=== PATIENT | female | born 1965 | race Caucasian/White ===

== ENCOUNTER → 2017-01-03 | Emergency (ER) | payer MEDICARE, MEDICAID ==
[~2017-01-03] VITALS: Ht 157.4 cm; Wt 58.1 kg
[~2017-01-03] MED LIST: ACULAR 3ML 3 ML5 ML OPH; ADDERALL XR15 MG PO; ADDERALL XR20 MG PO; ADDERALL XR25 MG PO; ADVAIR 250/501 EA INH; ALBUTEROL0.09 MG/A2 IH; ASPIR LOW81 MG PO; ASPIR-LOW81 MG PO; ASPIRIN ADULT L81 M1 PO; ASPIRIN CHEWABL81 MG PO; ATIVAN1 MG PO; B12100 MC1 PO; BACTRIM DS 8001 TA1 PO; CLARITIN10 MG PO; CLINDAMYCIN HC300 MG PO; DAYPRO600 M1 PO; DELTASONE10 MG PO; ELIMITE 5%60 GM T; ELIMITE5% T; FLEXERIL10 MG PO; FLEXERIL5 MG PO; FLONASE ALLERG9.9 ML NAS; HYDROCODONE BIT1 T11 PO; KEFLEX500 M1 PO; LEVAQUIN750 MG PO; LEVOFLOXACIN500 MG PO; LIDEX0.05% T; MEDROL DOSEPAK4 MG PO; METFORMIN500 MG; METFORMIN750 MG PO; Motrin,Rufen800 MG PO; NAPROSYN500 MG PO; NEURONTIN300 MG PO; NORCO 325 MG-7.1 TAB PO; OPANA ER30 MG PO; OPANA5 MG PO; PERCOCET 325 MG1 TA2 PO; PERCOCET 325 MG1 TA3 PO; PERCOCET 325 MG1 TA7 PO; PLAVIX75 M1 PO; PLAVIX75 MG PO; PREDNICOT20 MG PO; PREDNISONE10 MG PO; PREDNISONE20 MG PO; PROPRANOLOL HCL40 M1 PO; RESTORIL30 M1 PO; RESTORIL30 MG PO; ROBAXIN750 MG PO; ROBITUSSIN DM 105 ML PO; SEROQUEL100 MG PO; SEROQUEL200 MG PO; SEROQUEL25 MG PO; SPIRIVA18 MCG PO; TEMAZEPAM7.5 MG PO; TOBREX OPHTH S2.5 ML OPH; TOPAMAX50 MG PO; VICODIN 500 MG-1 TAB PO; VICODIN ES 7501 TA1 PO; ZANAFLEX CAPSULE4 MG PO; ZANAFLEX2 M2 PO; ZANAFLEX4 M1 PO; ZITHROMAX TRI-500 MG PO; ZITHROMAX500 MG PO; ZOFRAN ODT4 MG SL; [UNRECOGNIZED DRUG - OTHER] PO
== END ==
LOC: ED 13:24
DX: B34.9 Viral infection, unspecified (principal); G89.29 Other chronic pain; F32.9 Major depressive disorder, single episode, unspecified; I10 Essential (primary) hypertension; F41.0 Panic disorder [episodic paroxysmal anxiety]; G43.909 Migraine, unspecified, not intractable, without status migrainosus; F17.200 Nicotine dependence, unspecified, uncomplicated; Z91.030 Bee allergy status; Z88.0 Allergy status to penicillin; Z88.6 Allergy status to analgesic agent; Z88.8 Allergy status to other drugs, medicaments and biological substances; Z79.82 Long term (current) use of aspirin; Z79.899 Other long term (current) drug therapy

== ENCOUNTER 2017-01-18 06:52 | Inpatient (IN) | payer MEDICARE, MEDICAID ==
[2017-01-18] VITALS (8 sets, daily range): BP systolic 109–157; BP diastolic 41–87
[~2017-01-18] VITALS: Ht 157.4 cm; Wt 63.3 kg
[2017-01-18 07:24] LABS: BASO # 0.1 10*3/uL (0.0-0.1); BASO % 0.6 % (0.0-1.0); EOS # 0.2 10*3/uL (0.0-0.4); EOS % 1.9 % (1.0-4.0); HEMATOCRIT 40.2 % (37.0-47.0); HEMOGLOBIN 13.3 g/dl (12.0-16.0); LYMPH # 2.4 10*3/uL (1.3-4.4); LYMPH % 27.1 % (27.0-41.0); MEAN CELL VOLUME 101.8 fl (81.0-99.0); MEAN CORPUSCULAR HGB 33.7 pg (27.0-31.0); MEAN CORPUSCULAR HGB CONC 33.1 g/dl (33.0-37.0); MEAN PLATELET VOLUME 9.7 fl (9.6-12.3); MONO # 0.7 10*3/uL (0.1-1.0); MONO % 8.1 % (3.0-9.0); NEUT # 5.6 10*3/uL (2.3-7.9); PLATELET COUNT AUTOMATED 414 10*3/uL (130-400); RED BLOOD COUNT 3.95 10*6/uL (4.10-5.10); RED CELL DISTRI WIDTH 12.8 % (0-14.5)
[2017-01-18 07:32] LABS: INTERNATIONAL NORM RATIO 0.9 (2.0-3.5); PROTHROMBIN TIME 9.3 SECONDS (9.0-12.4)
[2017-01-18 07:39] LABS: ALBUMIN 3.4 gm/dl (3.1-4.5); ALKALINE PHOSPHATASE 96 U/L (45-117); BILIRUBIN, TOTAL 0.4 mg/dl (0.2-1.0); BUN 12 mg/dl (7-24); C-REACTIVE PROTEIN 0.84 MG/DL (0-0.3); CARBON DIOXIDE 29 mmol/L (21-32); CHLORIDE 105 mmol/L (98-107); CKMB 1.2 ng/ml (0.5-3.6); CPK 33 U/L (26-192); EST GLOM FILT AFRICAN AMERICAN > 60 ml/min; GLUCOSE 110 mg/dL (65-99); MAGNESIUM 2.3 mg/dL (1.5-2.1); POTASSIUM 4.2 mmol/L (3.5-5.1); SGOT/AST 13 IU/L (3-35); SGPT/ALT 25 U/L (12-78); SODIUM 140 mmol/L (136-145); TOTAL PROTEIN 7.2 gm/dL (6.4-8.2); TROPONIN I 0.018 ng/ml (<0.045)
[2017-01-18 09:19] LABS: BILIRUBIN NEGATIVE (NEGATIVE); BLOOD NEGATIVE (NEGATIVE); CLARITY SL CLOUDY (CLEAR); COLOR YELLOW (YELLOW); GLUCOSE NEGATIVE (NEGATIVE); KETONE NEGATIVE (NEGATIVE); LEUKO ESTERASE NEGATIVE (NEGATIVE); NITRITE NEGATIVE (NEGATIVE); PH 5.5 (5.0-9.0); PROTEIN NEGATIVE (NEGATIVE); SPECIFIC GRAVITY <= 1.005 (1.005-1.030); UROBILINOGEN 0.2 E.U./dl (0.2-1.0)
[2017-01-18 09:44] LABS: URINE REFLEX COMMENT NO (NO); WBC 0-2 wbc/hpf (0-5)
[2017-01-18 18:07] LABS: CKMB 1.1 ng/ml (0.5-3.6); CPK 36 U/L (26-192)
[2017-01-18 18:08] LABS: TROPONIN I < 0.015 ng/ml (<0.045)
[2017-01-19] VITALS: BP 109/57
[2017-01-19 00:38] LABS: CKMB 0.9 ng/ml (0.5-3.6); TROPONIN I 0.021 ng/ml (<0.045)
[2017-01-19 06:20] LABS: BASO % 0.1 % (0.0-1.0); HEMATOCRIT 38.3 % (37.0-47.0); HEMOGLOBIN 12.7 g/dl (12.0-16.0); IG # 0.1 10*3/uL (0.0-0.1); LYMPH # 1.1 10*3/uL (1.3-4.4); LYMPH % 7.3 % (27.0-41.0); MEAN CELL VOLUME 100.3 fl (81.0-99.0); MEAN CORPUSCULAR HGB 33.2 pg (27.0-31.0); MEAN CORPUSCULAR HGB CONC 33.2 g/dl (33.0-37.0); MEAN PLATELET VOLUME 10.1 fl (9.6-12.3); MONO # 0.6 10*3/uL (0.1-1.0); MONO % 4.5 % (3.0-9.0); NEUT # 12.5 10*3/uL (2.3-7.9); NEUT % 87.1 % (47.0-73.0); PLATELET COUNT AUTOMATED 392 10*3/uL (130-400); RED BLOOD COUNT 3.82 10*6/uL (4.10-5.10); RED CELL DISTRI WIDTH 12.6 % (0-14.5); WHITE BLOOD COUNT 14.3 10*3/uL (4.8-10.8)
[2017-01-19 06:27] LABS: CKMB 1.1 ng/ml (0.5-3.6); TROPONIN I 0.022 ng/ml (<0.045)
[2017-01-19 06:36] LABS: HEMOGLOBIN A1c 6.4 % (4.8-5.6)
[2017-01-19 06:53] LABS: BUN 10 mg/dl (7-24); CARBON DIOXIDE 26 mmol/L (21-32); CHLORIDE 104 mmol/L (98-107); CHOLESTEROL 212 mg/dL (<200); EST GLOM FILT AFRICAN AMERICAN > 60 ml/min; GLUCOSE 188 mg/dL (65-99); POTASSIUM 4.1 mmol/L (3.5-5.1); SODIUM 138 mmol/L (136-145); TRIGLYCERIDES 89 mg/dl (<150); VLDL CHOLESTEROL 18 mg/dL (6-40)
[2017-01-19 07:03] LABS: HDL CHOLESTEROL 73 mg/dl (40-60); LDL CHOLESTEROL 121 mg/dL (9-159); THYROID STIM HORMONE (HS) 0.098 uIU/ml (0.358-4.75)
[2017-01-19 07:12] LABS: VITAMIN D, 25-HYDROXY 26.7 ng/mL (30-100)
[2017-01-19 07:13] LABS: FOLIC ACID 8.66 ng/mL (>5.38)
[2017-01-19 08:00] VITALS: BP 102/60
[2017-01-19 12:00] VITALS: BP 112/99
[2017-01-19 16:00] VITALS: BP 99/50
[2017-01-19 20:00] VITALS: BP 110/59
[2017-01-20] VITALS: BP 104/50
[2017-01-20 08:00] VITALS: BP 118/64
[2017-01-20 12:00] VITALS: BP 122/66
== END 2017-01-20 13:28 | disposition left against medical advice (07) | DRG 303 ==
LOC: ED 06:52 → EDHOLD 12:22 → 4E 12:22
PROVIDERS: Emergency Medicine; Internal Medicine
DX: I25.10 Atherosclerotic heart disease of native coronary artery without angina pectoris (principal); R13.10 Dysphagia, unspecified; I10 Essential (primary) hypertension; I71.4 Abdominal aortic aneurysm, without rupture; G43.109 Migraine with aura, not intractable, without status migrainosus; I73.9 Peripheral vascular disease, unspecified; R94.31 Abnormal electrocardiogram [ECG] [EKG]; F41.9 Anxiety disorder, unspecified; F32.9 Major depressive disorder, single episode, unspecified; M54.12 Radiculopathy, cervical region; F41.0 Panic disorder [episodic paroxysmal anxiety]; G89.29 Other chronic pain; M54.16 Radiculopathy, lumbar region; Z53.21 Procedure and treatment not carried out due to patient leaving prior to being seen by health care provider; Z98.42 Cataract extraction status, left eye; Z98.51 Tubal ligation status; Z90.12 Acquired absence of left breast and nipple; Z83.3 Family history of diabetes mellitus; Z82.49 Family history of ischemic heart disease and other diseases of the circulatory system; Z82.0 Family history of epilepsy and other diseases of the nervous system; Z88.0 Allergy status to penicillin; Z88.1 Allergy status to other antibiotic agents; Z91.048 Other nonmedicinal substance allergy status; Z88.7 Allergy status to serum and vaccine; Z88.5 Allergy status to narcotic agent; Z88.8 Allergy status to other drugs, medicaments and biological substances; Z79.82 Long term (current) use of aspirin; Z79.899 Other long term (current) drug therapy

== ENCOUNTER 2017-05-28 10:07 | Emergency (ER) | payer MEDICARE, MEDICAID ==
[~2017-05-28] VITALS: Ht 157.4 cm; Wt 58.1 kg
[2017-05-28] MEDS ORDERED: Motrin,Rufen800 MG PO (12:14)
== END 2017-05-28 13:37 | disposition home or self-care (01) ==
LOC: ED 10:07
DX: S60.031A Contusion of right middle finger without damage to nail, initial encounter (principal); F17.210 Nicotine dependence, cigarettes, uncomplicated; Z91.030 Bee allergy status; Z88.7 Allergy status to serum and vaccine; Z88.0 Allergy status to penicillin; Z88.6 Allergy status to analgesic agent; Z88.8 Allergy status to other drugs, medicaments and biological substances; Z79.899 Other long term (current) drug therapy; Z79.82 Long term (current) use of aspirin; W18.39XA Other fall on same level, initial encounter; Y93.9 Activity, unspecified; Y92.9 Unspecified place or not applicable; Y99.9 Unspecified external cause status

== ENCOUNTER 2017-06-09 09:19 | Inpatient (IN) | payer MEDICARE, MEDICAID ==
[~2017-06-09] VITALS: Ht 157.5 cm; Wt 61.2 kg
--- NOTE | ~2017-06-09 | CON ---
[place], [place] REPORT OF CONSULTATION NAME: JUSTA POSADA UNIT #: [id number] ROOM: 526 DOCTOR: LEISA SEE MD BIRTHDATE: [birth year] DOS: 06/10/2017 REASON FOR CONSULTATION: Elevated troponin. HISTORY OF PRESENT ILLNESS: Justa Posada is a 52-year-old woman who has a long history of tobacco abuse. This has resulted in dyspnea and chest discomfort in the past. She most recently presented to the hospital in January 2017 when she presented with a syncopal episode. She was found to have marked symmetric anterior T-wave inversions. A stress test was requested, but the patient refused, stating that the stress tests make her too upset. She did agree to a catheterization. This was performed on 01/22/2017 and showed a 30% stenosis of the mid circumflex. She had no other significant coronary lesions and her ejection fraction was . Her electrocardiogram was felt to be a false positive tracing. She presents now with an acute exacerbation of her dyspnea. She states that she is very sensitive to pine pollen and recently has been living with her daughter who lives in a house surrounded by pine trees. She believed that this is what set her off. She does admit, however, that she continues to smoke 1 pack of cigarettes a day and tells me that she is unlikely to decrease this. On admission, she was very short of breath and her oxygenation on room air showed a pulse oximetry in the 80s. She was also actively wheezing on admission, she was placed on oxygen and given bronchodilators and steroids with immediate improvement. Her chest x-ray showed no acute disease. A D-dimer was elevated, but a CT angiogram of the chest showed no evidence for pulmonary emboli. Since she has been hospitalized, serial troponin levels have been minimally abnormal. On admission, they were normal; however during the hospitalization, her troponin levels were 0.056, 0.082 and 0.084. We were asked to assist in the assessment of this finding. PAST MEDICAL HISTORY: Includes; 1. Long-term and ongoing tobacco abuse. 2. Anxiety, depression and panic attacks. 3. Migraine headaches. 4. Peripheral vascular disease status post percutaneous revascularization of the left lower extremity. Details not available. 5. History of small infrarenal abdominal aortic aneurysm measuring less than 3 cm in diameter. 6. History of cervical radiculopathy. 7. Chronic back pain. 8. Abnormal electrocardiogram, prompting catheterization, 01/22/2017. Patient had 30% mid circumflex stenosis, but coronary anatomy was otherwise normal. Ejection fraction was 60%. 9. Essential hypertension. 10. History of right breast biopsy and partial mastectomy of the left breast. FAMILY HISTORY: The patient's father at age 76 with a history of diabetes, [place], [place] REPORT OF CONSULTATION NAME: JUSTA POSADA UNIT #: [id number] ROOM: 526 DOCTOR: LEISA SEE MD BIRTHDATE: [birth year] hypertension and [place]. The patient's mother at age 66 from diabetes and hypertension. MEDICATIONS PRIOR TO ADMISSION: Aspirin 81 mg per day, clopidogrel 75 mg per day, gabapentin 300 mg t.i.d., propranolol 40 mg b.i.d., Seroquel 200 mg at bedtime, temazepam 30 mg at bedtime and tizanidine 2 mg b.i.d. p.r.n. muscle spasms. ALLERGIES: SHE LISTS ALLERGIES TO BEE STINGS, INFLUENZA VIRUS VACCINE, PENICILLINS, CODEINE, NEFAZODONE, PNEUMOCOCCAL VACCINE, TETRACYCLINE, TOPIRAMATE AND ZOLPIDEM. REVIEW OF SYSTEMS: The patient denies diplopia or loss of vision. She denies syncope, lightheadedness or focal weakness. She denies nausea or vomiting. She denies fevers or chills. She has had worsening dyspnea. She denies hemoptysis or hematemesis. She denies change in bowel or bladder habits. She denies blood in her stools or urine. She denies any recent weight change. She denies any peripheral edema. She denies any hot or swollen joints. She denies any skin rashes. The remainder of the review of systems is negative except as noted above. SOCIAL HISTORY: The patient is living with her daughter. She does smoke a pack of cigarettes a day, but does not consume alcohol or illegal drugs. PHYSICAL EXAMINATION: GENERAL: The patient is a well-nourished white female who is awake, alert and oriented. VITAL SIGNS: Pulse is 96 and regular, blood pressure is 118/65. She is afebrile. She weighs 61.2 kg and has a body mass index of 24.7. HEENT: Normocephalic, atraumatic. Extraocular muscles are intact. Sclerae are clear. Pupils are equal, round and reactive to light. The oral mucosa is moist. Tongue is midline. NECK: Supple. She has no jugular distention. Carotids are full without bruits. She has no neck or supraclavicular masses. No thyromegaly. LUNGS: Respirations are unlabored. Her chest has mild expiratory prolongation posteriorly and a few scattered wheezes anteriorly. I heard no rales. She had no presacral edema or chest wall tenderness. CARDIOVASCULAR: Her heart had a regular rhythm with a soft S4 gallop and no S3 or murmur. PMI is not displaced. There is no precordial heave, lift or thrill. ABDOMEN: Soft and normally active without masses, organomegaly or bruits. EXTREMITIES: Showed no edema. Peripheral pulses are full and equal bilaterally. LABORATORY DATA: I reviewed her electrocardiogram. It showed sinus rhythm with PACs. No acute ST or T-wave changes were seen on the current EKG. IMPRESSIONS: 1. Presentation with acute respiratory failure and hypoxemia, probably due to acute bronchospasm, pneumonitis, etc. 2. Mild elevation in troponin, probably due to a type 2 myocardial injury [place], [place] REPORT OF CONSULTATION NAME: JUSTA POSADA UNIT #: [id number] ROOM: 526 DOCTOR: LEISA SEE MD BIRTHDATE: [birth year] (demand ischemia). 3. Long-term and ongoing cigarette abuse. 4. History of peripheral vascular disease. 5. Status post recent cardiac catheterization. The patient did not have any significant coronary artery disease demonstrated. 6. Small infrarenal abdominal aortic aneurysm, which will require long-term observation. PLAN: No other cardiac workup is indicated at this time. We will remain available to see her if needed; however, I think that management of her pulmonary status will result in improvement in her cardiac status as well. She should emphasize risk factor modification and I did speak to her about smoking cessation, but she is not particularly interested in that at this time. I thank the hospitalist physicians for asking our advice regarding her care. LEISA SEE MD CM:CONSTR:REPORT OF CONSULTATION [id number] 06/10/17 [id number] interface
[2017-06-09 09:37] VITALS: BP 168/100
[2017-06-09 09:40] LABS: BASO # 0.1 10*3/uL (0.0-0.1); BASO % 0.7 % (0.0-1.0); EOS # 0.3 10*3/uL (0.0-0.4); EOS % 3.2 % (1.0-4.0); HEMATOCRIT 40.3 % (37.0-47.0); HEMOGLOBIN 13.3 g/dl (12.0-16.0); LYMPH # 2.2 10*3/uL (1.3-4.4); LYMPH % 27.7 % (27.0-41.0); MEAN CELL VOLUME 100.5 fl (81.0-99.0); MEAN CORPUSCULAR HGB 33.2 pg (27.0-31.0); MEAN PLATELET VOLUME 10.6 fl (9.6-12.3); MONO # 0.5 10*3/uL (0.1-1.0); MONO % 5.6 % (3.0-9.0); NEUT % 62.6 % (47.0-73.0); PLATELET COUNT AUTOMATED 354 10*3/uL (130-400); RED BLOOD COUNT 4.01 10*6/uL (4.10-5.10); RED CELL DISTRI WIDTH 13.2 % (0-14.5)
[2017-06-09 09:56] LABS: ALBUMIN 3.5 gm/dl (3.1-4.5); ALKALINE PHOSPHATASE 93 U/L (45-117); BUN 10 mg/dl (7-24); CHLORIDE 104 mmol/L (98-107); CREATININE 0.81 mg/dL (0.55-1.02); MAGNESIUM 2.1 mg/dL (1.5-2.1); POTASSIUM 4.1 mmol/L (3.5-5.1); SGOT/AST 11 IU/L (3-35); SGPT/ALT 16 U/L (12-78); SODIUM 141 mmol/L (136-145); TOTAL PROTEIN 7.3 gm/dL (6.4-8.2)
[2017-06-09 09:58] LABS: TROPONIN I < 0.015 ng/ml (<0.045)
[2017-06-09 10:48] VITALS: BP 152/87
[2017-06-09 16:26] LABS: ACT PARTIAL THROMBO TIME 23.2 SECONDS (20.8-31.5); INTERNATIONAL NORM RATIO 0.9 (2.0-3.5)
[2017-06-09 16:37] VITALS: BP 164/85
[2017-06-09] MEDS ORDERED: TIZANIDINE2 MG PO (18:37)
[2017-06-09 20:00] VITALS: BP 147/88
[2017-06-10] VITALS: BP 118/65
[2017-06-10 06:00] LABS: HEMATOCRIT 36.6 % (37.0-47.0); HEMOGLOBIN 12.2 g/dl (12.0-16.0); MEAN CELL VOLUME 98.9 fl (81.0-99.0); MEAN CORPUSCULAR HGB CONC 33.3 g/dl (33.0-37.0); MEAN PLATELET VOLUME 10.9 fl (9.6-12.3); PLATELET COUNT AUTOMATED 357 10*3/uL (130-400); RED CELL DISTRI WIDTH 13.2 % (0-14.5); WHITE BLOOD COUNT 18.6 10*3/uL (4.8-10.8)
[2017-06-10 06:22] LABS: ALBUMIN 3.1 gm/dl (3.1-4.5); ALKALINE PHOSPHATASE 82 U/L (45-117); BUN 10 mg/dl (7-24); CHLORIDE 106 mmol/L (98-107); CHOLESTEROL 187 mg/dL (<200); CREATININE 0.74 mg/dL (0.55-1.02); HDL CHOLESTEROL 78 mg/dl (40-60); LDL CHOLESTEROL 90 mg/dL (9-159); MAGNESIUM 1.9 mg/dL (1.5-2.1); PHOSPHOROUS 3.8 mg/dL (2.5-4.9); PLATELET SUFFICIENCY NORMAL (NORMAL); POTASSIUM 3.9 mmol/L (3.5-5.1); SGOT/AST 14 IU/L (3-35); SGPT/ALT 14 U/L (12-78); SODIUM 139 mmol/L (136-145); TOTAL CELLS COUNTED 100 #CELLS; TOTAL PROTEIN 6.5 gm/dL (6.4-8.2); TRIGLYCERIDES 96 mg/dl (<150); VLDL CHOLESTEROL 19 mg/dL (6-40)
[2017-06-10 06:26] LABS: THYROID STIM HORMONE (HS) 0.091 uIU/ml (0.358-4.75)
[2017-06-10 08:00] VITALS: BP 132/84
[2017-06-10 08:02] LABS: VITAMIN D, 25-HYDROXY 36.2 ng/mL (30-100)
[2017-06-10 12:00] VITALS: BP 120/76
[2017-06-10 16:00] VITALS: BP 119/72
[2017-06-10 20:00] VITALS: BP 129/60
[2017-06-11] VITALS: BP 130/67
[2017-06-11 06:05] LABS: BASO % 0.1 % (0.0-1.0); HEMOGLOBIN 11.4 g/dl (12.0-16.0); LYMPH # 1.2 10*3/uL (1.3-4.4); LYMPH % 6.5 % (27.0-41.0); MEAN CELL VOLUME 100.9 fl (81.0-99.0); MEAN CORPUSCULAR HGB 33.8 pg (27.0-31.0); MEAN CORPUSCULAR HGB CONC 33.5 g/dl (33.0-37.0); MEAN PLATELET VOLUME 10.8 fl (9.6-12.3); MONO # 0.5 10*3/uL (0.1-1.0); MONO % 2.6 % (3.0-9.0); NEUT % 89.8 % (47.0-73.0); PLATELET COUNT AUTOMATED 361 10*3/uL (130-400); RED BLOOD COUNT 3.37 10*6/uL (4.10-5.10); RED CELL DISTRI WIDTH 13.7 % (0-14.5); WHITE BLOOD COUNT 18.9 10*3/uL (4.8-10.8)
[2017-06-11 06:36] LABS: BUN 16 mg/dl (7-24); CHLORIDE 107 mmol/L (98-107); CREATININE 0.88 mg/dL (0.55-1.02); POTASSIUM 3.6 mmol/L (3.5-5.1); SODIUM 139 mmol/L (136-145); THYROXINE (T4) TOTAL 6.5 ug/dl (4.8-13.9)
[2017-06-11 06:43] LABS: THYROID STIM HORMONE (HS) 0.044 uIU/ml (0.358-4.75)
[2017-06-11 08:00] VITALS: BP 150/74
[2017-06-11] MEDS ORDERED: B12,B-12,B 12500 MC1 PO (09:18)
[2017-06-11] MEDS ORDERED: LEVAQUIN500 M2 PO (09:18)
[2017-06-11] MEDS ORDERED: PREDNISONE10 MG PO (09:18)
== END 2017-06-11 09:49 | disposition home or self-care (01) | DRG 193 ==
LOC: ED 09:19 → 5E 10:31 → EDHOLD 10:31 → 5E 10:49
PROVIDERS: Family Medicine; Internal Medicine Cardiovascular Disease; Nurse Practitioner Family; ADMIT Internal Medicine
DX: J18.9 Pneumonia, unspecified organism (principal); J96.01 Acute respiratory failure with hypoxia; J44.1 Chronic obstructive pulmonary disease with (acute) exacerbation; J44.0 Chronic obstructive pulmonary disease with (acute) lower respiratory infection; F17.210 Nicotine dependence, cigarettes, uncomplicated; F41.9 Anxiety disorder, unspecified; M54.12 Radiculopathy, cervical region; G89.29 Other chronic pain; M54.16 Radiculopathy, lumbar region; F32.9 Major depressive disorder, single episode, unspecified; I73.9 Peripheral vascular disease, unspecified; J98.01 Acute bronchospasm; M54.9 Dorsalgia, unspecified; W18.30XA Fall on same level, unspecified, initial encounter; G43.909 Migraine, unspecified, not intractable, without status migrainosus; I25.10 Atherosclerotic heart disease of native coronary artery without angina pectoris; S60.00XA Contusion of unspecified finger without damage to nail, initial encounter; I71.4 Abdominal aortic aneurysm, without rupture; Y93.89 Activity, other specified; Y92.89 Other specified places as the place of occurrence of the external cause; Y99.8 Other external cause status; Z88.5 Allergy status to narcotic agent; Z83.3 Family history of diabetes mellitus; Z82.49 Family history of ischemic heart disease and other diseases of the circulatory system; Z82.0 Family history of epilepsy and other diseases of the nervous system; Z88.0 Allergy status to penicillin; Z88.1 Allergy status to other antibiotic agents; Z91.030 Bee allergy status; Z98.42 Cataract extraction status, left eye; Z90.12 Acquired absence of left breast and nipple; Z98.51 Tubal ligation status; Z88.7 Allergy status to serum and vaccine

== ENCOUNTER → 2018-01-18 | Outpatient (CLI) | payer MEDICARE ==
[~2018-01-18] MED LIST changes: +B12,B-12,B 12500 MC1 PO; +LEVAQUIN500 M2 PO; +TIZANIDINE2 MG PO
[2018-01-18 10:41] LABS: CREATININE 0.77 mg/dL (0.55-1.02)
== END | disposition home or self-care (01) ==
LOC: CT 12-18 16:00 → LAB 10:12 → CT 11:00
PROVIDERS: Registered Nurse Flight
DX: I71.4 Abdominal aortic aneurysm, without rupture (principal); K76.0 Fatty (change of) liver, not elsewhere classified; Z79.899 Other long term (current) drug therapy

== ENCOUNTER 2018-04-03 18:26 | Emergency (ER) | payer MEDICARE, MEDICAID ==
[~2018-04-03] VITALS: Ht 157.4 cm; Wt 54.4 kg
[2018-04-03] MEDS ORDERED: ATIVAN0.5 MG PO (18:32)
[2018-04-03] MEDS ORDERED: VISTARIL25 MG PO (18:47)
== END 2018-04-03 19:19 | disposition home or self-care (01) ==
LOC: ED 18:26
DX: F41.9 Anxiety disorder, unspecified (principal); F17.210 Nicotine dependence, cigarettes, uncomplicated; Z79.82 Long term (current) use of aspirin; Z79.899 Other long term (current) drug therapy; Z91.030 Bee allergy status; Z88.0 Allergy status to penicillin; Z88.6 Allergy status to analgesic agent; Z88.8 Allergy status to other drugs, medicaments and biological substances; Z88.1 Allergy status to other antibiotic agents; Z88.7 Allergy status to serum and vaccine

== ENCOUNTER 2018-05-05 13:50 | Emergency (ER) | payer MEDICARE, MEDICAID ==
[~2018-05-05] VITALS: Ht 157.4 cm; Wt 56.2 kg
[~2018-05-05 13:50] MED LIST changes: +ATIVAN0.5 MG PO; +VISTARIL25 MG PO
[2018-05-05] MEDS ORDERED: NEURONTIN300 MG PO (13:56)
== END 2018-05-05 14:05 | disposition home or self-care (01) ==
LOC: ED 13:50
DX: F41.9 Anxiety disorder, unspecified (principal); R03.0 Elevated blood-pressure reading, without diagnosis of hypertension; F17.210 Nicotine dependence, cigarettes, uncomplicated; Z76.0 Encounter for issue of repeat prescription; Z91.030 Bee allergy status; Z88.0 Allergy status to penicillin; Z88.6 Allergy status to analgesic agent; Z88.8 Allergy status to other drugs, medicaments and biological substances; Z88.1 Allergy status to other antibiotic agents; Z88.7 Allergy status to serum and vaccine; Z79.899 Other long term (current) drug therapy; Z79.82 Long term (current) use of aspirin

== ENCOUNTER 2018-06-24 09:55 | Emergency (ER) | payer MEDICARE, MEDICAID ==
[~2018-06-24] VITALS: Ht 157.4 cm; Wt 54.4 kg
[2018-06-24 10:43] LABS: BASO # 0.1 10*3/uL (0.0-0.1); BASO % 0.7 % (0.0-1.0); EOS # 0.1 10*3/uL (0.0-0.4); EOS % 1.5 % (1.0-4.0); HEMATOCRIT 40.8 % (37.0-47.0); HEMOGLOBIN 13.3 g/dl (12.0-16.0); LYMPH # 1.9 10*3/uL (1.3-4.4); LYMPH % 26.4 % (27.0-41.0); MEAN CELL VOLUME 100.7 fl (81.0-99.0); MEAN CORPUSCULAR HGB 32.8 pg (27.0-31.0); MEAN CORPUSCULAR HGB CONC 32.6 g/dl (33.0-37.0); MEAN PLATELET VOLUME 10.6 fl (9.6-12.3); MONO # 0.4 10*3/uL (0.1-1.0); MONO % 5.5 % (3.0-9.0); NEUT # 4.8 10*3/uL (2.3-7.9); NEUT % 65.8 % (47.0-73.0); PLATELET COUNT AUTOMATED 359 10*3/uL (130-400); RED BLOOD COUNT 4.05 10*6/uL (4.10-5.10); RED CELL DISTRI WIDTH 13.2 % (0-14.5); WHITE BLOOD COUNT 7.3 10*3/uL (4.8-10.8)
[2018-06-24 11:00] LABS: ALBUMIN 3.9 gm/dl (3.1-4.5); ALKALINE PHOSPHATASE 87 U/L (45-117); BUN 11 mg/dl (7-24); CHLORIDE 103 mmol/L (98-107); CREATININE 0.74 mg/dL (0.55-1.02); POTASSIUM 4.1 mmol/L (3.5-5.1); SGOT/AST 14 IU/L (3-35); SGPT/ALT 22 U/L (12-78); SODIUM 137 mmol/L (136-145); TOTAL PROTEIN 7.4 gm/dL (6.4-8.2)
[2018-06-24] MEDS ORDERED: PREDNISONE50 MG PO (12:29)
[2018-06-24] MEDS ORDERED: CYCLOBENZAPRINE10 MG PO (12:29)
== END 2018-06-24 12:32 | disposition home or self-care (01) ==
LOC: ED 09:55
PROVIDERS: Nurse Practitioner Family
DX: G43.909 Migraine, unspecified, not intractable, without status migrainosus (principal); M43.6 Torticollis; Z88.0 Allergy status to penicillin; Z88.5 Allergy status to narcotic agent; Z88.6 Allergy status to analgesic agent; Z91.030 Bee allergy status; Z88.8 Allergy status to other drugs, medicaments and biological substances; Z79.899 Other long term (current) drug therapy; Z79.82 Long term (current) use of aspirin; Z98.51 Tubal ligation status

== ENCOUNTER 2018-09-29 10:37 | Emergency (ER) | payer MEDICARE, MEDICAID ==
[~2018-09-29] VITALS: Ht 157.4 cm; Wt 53.1 kg
[~2018-09-29 10:37] MED LIST changes: +CYCLOBENZAPRINE10 MG PO; +PREDNISONE50 MG PO
[2018-09-29 11:18] LABS: BASO # 0.1 10*3/uL (0.0-0.1); BASO % 0.7 % (0.0-1.0); EOS # 0.3 10*3/uL (0.0-0.4); HEMATOCRIT 41.4 % (37.0-47.0); HEMOGLOBIN 13.8 g/dl (12.0-16.0); LYMPH # 2.4 10*3/uL (1.3-4.4); LYMPH % 26.9 % (27.0-41.0); MEAN CELL VOLUME 102.2 fl (81.0-99.0); MEAN CORPUSCULAR HGB 34.1 pg (27.0-31.0); MEAN CORPUSCULAR HGB CONC 33.3 g/dl (33.0-37.0); MEAN PLATELET VOLUME 10.2 fl (9.6-12.3); MONO # 0.7 10*3/uL (0.1-1.0); MONO % 7.5 % (3.0-9.0); NEUT # 5.4 10*3/uL (2.3-7.9); NEUT % 61.7 % (47.0-73.0); PLATELET COUNT AUTOMATED 367 10*3/uL (130-400); RED BLOOD COUNT 4.05 10*6/uL (4.10-5.10); RED CELL DISTRI WIDTH 13.4 % (0-14.5); WHITE BLOOD COUNT 8.8 10*3/uL (4.8-10.8)
[2018-09-29 11:29] LABS: ACT PARTIAL THROMBO TIME 22.7 SECONDS (20.8-31.5); INTERNATIONAL NORM RATIO 0.9 (2.0-3.5)
[2018-09-29 11:38] LABS: ALBUMIN 3.8 gm/dl (3.1-4.5); ALKALINE PHOSPHATASE 108 U/L (45-117); BUN 16 mg/dl (7-24); CHLORIDE 101 mmol/L (98-107); CREATININE 0.78 mg/dL (0.55-1.02); POTASSIUM 4.4 mmol/L (3.5-5.1); SGOT/AST 30 IU/L (3-35); SGPT/ALT 36 U/L (12-78); SODIUM 135 mmol/L (136-145); TOTAL PROTEIN 7.5 gm/dL (6.4-8.2)
== END 2018-09-29 13:21 | disposition left against medical advice (07) ==
LOC: ED 10:37
PROVIDERS: Emergency Medicine
DX: I77.89 Other specified disorders of arteries and arterioles (principal); I10 Essential (primary) hypertension; J44.9 Chronic obstructive pulmonary disease, unspecified; I25.10 Atherosclerotic heart disease of native coronary artery without angina pectoris; G43.909 Migraine, unspecified, not intractable, without status migrainosus; F17.210 Nicotine dependence, cigarettes, uncomplicated; Z91.030 Bee allergy status; Z88.0 Allergy status to penicillin; Z88.7 Allergy status to serum and vaccine; Z88.6 Allergy status to analgesic agent; Z88.8 Allergy status to other drugs, medicaments and biological substances; Z88.1 Allergy status to other antibiotic agents; Z79.899 Other long term (current) drug therapy; Z79.82 Long term (current) use of aspirin

== ENCOUNTER → 2018-12-05 | Outpatient (CLI) | payer MEDICARE, MEDICAID | END | disposition home or self-care (01) | LOC: MRI 11-27 15:00 | DX: R41.3 Other amnesia (principal) ==

== ENCOUNTER 2019-03-24 17:31 | Emergency (ER) | payer MEDICARE, MEDICAID ==
[~2019-03-24] VITALS: Ht 157.4 cm; Wt 55.8 kg
[2019-03-24] MEDS ORDERED: CLINDAMYCIN HC300 MG PO (17:38)
== END 2019-03-24 19:00 | disposition home or self-care (01) ==
LOC: ED 17:31
DX: S61.512A Laceration without foreign body of left wrist, initial encounter (principal); S70.311A Abrasion, right thigh, initial encounter; F17.210 Nicotine dependence, cigarettes, uncomplicated; Z91.030 Bee allergy status; Z88.7 Allergy status to serum and vaccine; Z88.0 Allergy status to penicillin; Z88.5 Allergy status to narcotic agent; Z88.8 Allergy status to other drugs, medicaments and biological substances; Z88.1 Allergy status to other antibiotic agents; Z79.899 Other long term (current) drug therapy; Z79.82 Long term (current) use of aspirin; W26.8XXA Contact with other sharp object(s), not elsewhere classified, initial encounter; Y93.89 Activity, other specified; Y92.89 Other specified places as the place of occurrence of the external cause; Y99.8 Other external cause status

== ENCOUNTER 2019-06-30 07:22 | Emergency (ER) | payer MEDICARE, MEDICAID ==
[~2019-06-30] VITALS: Ht 157.4 cm; Wt 51.7 kg
[2019-06-30] MEDS ORDERED: PREDNISONE20 M1 PO (10:55)
[2019-06-30] MEDS ORDERED: LIDEX 0.05% CRE15 GM T (10:55)
== END 2019-06-30 11:14 | disposition home or self-care (01) ==
LOC: ED 07:22
DX: G43.909 Migraine, unspecified, not intractable, without status migrainosus (principal); L25.9 Unspecified contact dermatitis, unspecified cause; G89.29 Other chronic pain; I25.10 Atherosclerotic heart disease of native coronary artery without angina pectoris; Z98.890 Other specified postprocedural states; Z98.51 Tubal ligation status; Z79.899 Other long term (current) drug therapy; Z79.82 Long term (current) use of aspirin; Z91.030 Bee allergy status; Z88.7 Allergy status to serum and vaccine; Z88.0 Allergy status to penicillin; Z88.5 Allergy status to narcotic agent; Z88.1 Allergy status to other antibiotic agents

== ENCOUNTER 2019-07-27 09:55 | Emergency (ER) | payer MEDICARE, MEDICAID ==
[~2019-07-27] VITALS: Ht 157.4 cm; Wt 51.7 kg
[~2019-07-27 09:55] MED LIST changes: +LIDEX 0.05% CRE15 GM T; +PREDNISONE20 M1 PO
[2019-07-27 10:56] LABS: BASO % 0.4 % (0.0-1.0); EOS # 0.2 10*3/uL (0.0-0.4); EOS % 2.2 % (1.0-4.0); HEMATOCRIT 39.3 % (37.0-47.0); HEMOGLOBIN 12.8 g/dl (12.0-16.0); LYMPH # 2.9 10*3/uL (1.3-4.4); LYMPH % 28.3 % (27.0-41.0); MEAN CELL VOLUME 105.1 fl (81.0-99.0); MEAN CORPUSCULAR HGB 34.2 pg (27.0-31.0); MEAN CORPUSCULAR HGB CONC 32.6 g/dl (33.0-37.0); MEAN PLATELET VOLUME 11.2 fl (9.6-12.3); MONO # 0.7 10*3/uL (0.1-1.0); MONO % 6.6 % (3.0-9.0); NEUT # 6.4 10*3/uL (2.3-7.9); NEUT % 62.2 % (47.0-73.0); PLATELET COUNT AUTOMATED 326 10*3/uL (130-400); RED BLOOD COUNT 3.74 10*6/uL (4.10-5.10); RED CELL DISTRI WIDTH 14.1 % (0-14.5); WHITE BLOOD COUNT 10.2 10*3/uL (4.8-10.8)
[2019-07-27 11:08] LABS: ACT PARTIAL THROMBO TIME 22.7 SECONDS (20.0-32.1); INTERNATIONAL NORM RATIO 0.9 (2.0-3.5)
[2019-07-27 11:13] LABS: ALBUMIN 3.3 gm/dl (3.1-4.5); ALKALINE PHOSPHATASE 68 U/L (45-117); BUN 11 mg/dl (7-24); CHLORIDE 103 mmol/L (98-107); CREATININE 0.81 mg/dL (0.55-1.02); LIPASE 141 U/L (73-393); SGOT/AST 11 IU/L (3-35); SGPT/ALT 20 U/L (12-78); SODIUM 138 mmol/L (136-145); TOTAL PROTEIN 6.1 gm/dL (6.4-8.2)
[2019-07-27 11:15] LABS: TROPONIN I < 0.015 ng/ml (<0.045)
[2019-07-27 12:37] LABS: BILIRUBIN NEGATIVE (NEGATIVE); BLOOD NEGATIVE (NEGATIVE); CLARITY CLEAR (CLEAR); COLOR YELLOW (YELLOW); GLUCOSE NEGATIVE (NEGATIVE); KETONE NEGATIVE (NEGATIVE); LEUKO ESTERASE TRACE (NEGATIVE); NITRITE NEGATIVE (NEGATIVE); PH 6.5 (5.0-9.0); SPECIFIC GRAVITY <= 1.005 (1.005-1.030); UROBILINOGEN 0.2 E.U./dl (0.2-1.0)
[2019-07-27 12:48] LABS: BACTERIA TRACE
[2019-07-27] MEDS ORDERED: ROBAXIN-750750 MG PO (13:36)
== END 2019-07-27 13:49 | disposition home or self-care (01) ==
LOC: ED 09:55
PROVIDERS: Physician Assistant
DX: S52.121A Displaced fracture of head of right radius, initial encounter for closed fracture (principal); S90.31XA Contusion of right foot, initial encounter; R51 Headache; M54.2 Cervicalgia; M25.521 Pain in right elbow; I10 Essential (primary) hypertension; Z79.01 Long term (current) use of anticoagulants; W01.198A Fall on same level from slipping, tripping and stumbling with subsequent striking against other object, initial encounter; W20.8XXA Other cause of strike by thrown, projected or falling object, initial encounter; Y93.89 Activity, other specified; Y92.89 Other specified places as the place of occurrence of the external cause; Y99.8 Other external cause status

== ENCOUNTER → 2019-08-03 | Outpatient (CLI) | payer MEDICARE, MEDICAID ==
[~2019-08-03] MED LIST changes: +ROBAXIN-750750 MG PO
== END | disposition home or self-care (01) ==
LOC: ORTHO 00:22
DX: M25.422 Effusion, left elbow (principal)

== ENCOUNTER 2019-10-05 10:34 | Emergency (ER) | payer MEDICARE, MEDICAID ==
[~2019-10-05] VITALS: Ht 157.4 cm; Wt 54.4 kg
== END 2019-10-05 12:35 | disposition home or self-care (01) ==
LOC: ED 10:34
DX: S63.501A Unspecified sprain of right wrist, initial encounter (principal); S40.011A Contusion of right shoulder, initial encounter; M79.642 Pain in left hand; M25.521 Pain in right elbow; J45.909 Unspecified asthma, uncomplicated; G89.29 Other chronic pain; G43.909 Migraine, unspecified, not intractable, without status migrainosus; F17.210 Nicotine dependence, cigarettes, uncomplicated; Z91.030 Bee allergy status; Z88.7 Allergy status to serum and vaccine; Z88.0 Allergy status to penicillin; Z88.5 Allergy status to narcotic agent; Z88.8 Allergy status to other drugs, medicaments and biological substances; Z79.2 Long term (current) use of antibiotics; Z79.82 Long term (current) use of aspirin; Z79.899 Other long term (current) drug therapy; Z86.718 Personal history of other venous thrombosis and embolism; W20.8XXA Other cause of strike by thrown, projected or falling object, initial encounter; Y93.89 Activity, other specified; Y92.89 Other specified places as the place of occurrence of the external cause; Y99.8 Other external cause status

== ENCOUNTER → 2019-12-02 | Outpatient (CLI) | payer MEDICARE, MEDICAID | END | disposition home or self-care (01) | LOC: US 10:30 | DX: I73.9 Peripheral vascular disease, unspecified (principal); Z95.828 Presence of other vascular implants and grafts ==

== ENCOUNTER → 2020-09-28 | Outpatient (CLI) | payer OTHER, MEDICAID | END | disposition home or self-care (01) | LOC: MAMMO 09-19 13:30 | PROVIDERS: ATTEND Internal Medicine | DX: Z12.31 Encounter for screening mammogram for malignant neoplasm of breast (principal) ==

== ENCOUNTER → 2020-11-16 | Outpatient (CLI) | payer OTHER, MEDICAID | END | disposition home or self-care (01) | LOC: ORTHO 00:33 | PROVIDERS: ATTEND Orthopaedic Surgery | DX: M25.511 Pain in right shoulder (principal) ==

== ENCOUNTER 2021-04-26 11:12 | Emergency (ER) | payer OTHER, MEDICAID ==
[~2021-04-26] VITALS: Wt 56.7 kg
[2021-04-26] MEDS ORDERED: SILVADENE,SSD C50 GM T (12:01)
[2021-04-26] MEDS ORDERED: HYDROCODONE-AC1 EAC1 PO (12:01)
[2021-04-26] MEDS ORDERED: SEPTDS PO (12:01)
== END 2021-04-26 12:31 | disposition home or self-care (01) ==
LOC: ED 11:12
DX: T22.211A Burn of second degree of right forearm, initial encounter (principal); T22.611A Corrosion of second degree of right forearm, initial encounter; F17.210 Nicotine dependence, cigarettes, uncomplicated; Z79.899 Other long term (current) drug therapy; Z79.82 Long term (current) use of aspirin; Z91.030 Bee allergy status; Z88.7 Allergy status to serum and vaccine; Z88.5 Allergy status to narcotic agent; Z88.8 Allergy status to other drugs, medicaments and biological substances; X58.XXXA Exposure to other specified factors, initial encounter; Y93.89 Activity, other specified; Y92.89 Other specified places as the place of occurrence of the external cause; Y99.9 Unspecified external cause status

== ENCOUNTER 2021-06-30 08:35 | Emergency (ER) | payer OTHER, MEDICAID ==
[~2021-06-30] VITALS: Ht 157.4 cm; Wt 55.8 kg
[~2021-06-30 08:35] MED LIST changes: +HYDROCODONE-AC1 EAC1 PO; +SEPTDS PO; +SILVADENE,SSD C50 GM T
[2021-06-30 09:22] LABS: BASO # 0.1 10*3/uL (0.0-0.1); BASO % 0.6 % (0.0-1.0); EOS # 0.2 10*3/uL (0.0-0.4); EOS % 2.3 % (1.0-4.0); LYMPH # 2.3 10*3/uL (1.3-4.4); LYMPH % 26.1 % (27.0-41.0); MEAN CELL VOLUME 101.9 fl (81.0-99.0); MEAN CORPUSCULAR HGB 32.9 pg (27.0-31.0); MEAN CORPUSCULAR HGB CONC 32.3 g/dl (33.0-37.0); MEAN PLATELET VOLUME 10.1 fl (9.6-12.3); MONO # 0.6 10*3/uL (0.1-1.0); MONO % 6.6 % (3.0-9.0); NEUT # 5.8 10*3/uL (2.3-7.9); NEUT % 64.1 % (47.0-73.0); PLATELET COUNT AUTOMATED 349 10*3/uL (130-400); RED BLOOD COUNT 4.32 10*6/uL (4.10-5.10); RED CELL DISTRI WIDTH 12.5 % (0-14.5)
[2021-06-30 09:46] LABS: ALBUMIN 3.8 gm/dl (3.1-4.5); ALKALINE PHOSPHATASE 79 U/L (45-117); BUN 23 mg/dl (7-24); CHLORIDE 104 mmol/L (98-107); CREATININE 0.92 mg/dL (0.55-1.02); LIPASE 108 U/L (73-393); POTASSIUM 4.9 mmol/L (3.5-5.1); SGOT/AST 12 IU/L (3-35); SGPT/ALT 25 U/L (12-78); SODIUM 138 mmol/L (136-145); TOTAL PROTEIN 7.3 gm/dL (6.4-8.2); TROPONIN I < 0.015 ng/ml (<0.045)
== END 2021-07-01 11:19 | disposition left against medical advice (07) ==
LOC: ED 08:35
PROVIDERS: Emergency Medicine
DX: I70.292 Other atherosclerosis of native arteries of extremities, left leg (principal); I73.89 Other specified peripheral vascular diseases; R06.02 Shortness of breath; J44.9 Chronic obstructive pulmonary disease, unspecified; F17.210 Nicotine dependence, cigarettes, uncomplicated; Z98.890 Other specified postprocedural states; Z98.51 Tubal ligation status; Z79.82 Long term (current) use of aspirin; Z79.899 Other long term (current) drug therapy; Z91.030 Bee allergy status; Z88.7 Allergy status to serum and vaccine; Z88.0 Allergy status to penicillin; Z88.5 Allergy status to narcotic agent

== ENCOUNTER 2021-07-01 20:20 | Emergency (ER) | payer OTHER, MEDICAID ==
[~2021-07-01] VITALS: Ht 165.1 cm; Wt 72.6 kg
[2021-07-01 21:52] LABS: BASO % 0.2 % (0.0-1.0); LYMPH # 1.3 10*3/uL (1.3-4.4); LYMPH % 13.6 % (27.0-41.0); MEAN CELL VOLUME 101.9 fl (81.0-99.0); MEAN CORPUSCULAR HGB 32.9 pg (27.0-31.0); MEAN CORPUSCULAR HGB CONC 32.3 g/dl (33.0-37.0); MEAN PLATELET VOLUME 10.5 fl (9.6-12.3); MONO # 0.3 10*3/uL (0.1-1.0); MONO % 2.7 % (3.0-9.0); NEUT # 7.9 10*3/uL (2.3-7.9); NEUT % 83.2 % (47.0-73.0); PLATELET COUNT AUTOMATED 340 10*3/uL (130-400); RED BLOOD COUNT 4.32 10*6/uL (4.10-5.10); RED CELL DISTRI WIDTH 12.4 % (0-14.5); WHITE BLOOD COUNT 9.5 10*3/uL (4.8-10.8)
[2021-07-01 22:10] LABS: ALBUMIN 3.8 gm/dl (3.1-4.5); ALKALINE PHOSPHATASE 78 U/L (45-117); BUN 18 mg/dl (7-24); CHLORIDE 104 mmol/L (98-107); CREATININE 0.69 mg/dL (0.55-1.02); POTASSIUM 4.2 mmol/L (3.5-5.1); SGOT/AST 11 IU/L (3-35); SGPT/ALT 24 U/L (12-78); SODIUM 139 mmol/L (136-145); TOTAL PROTEIN 7.4 gm/dL (6.4-8.2)
[2021-07-01 22:14] LABS: TROPONIN I < 0.015 ng/ml (<0.045)
== END 2021-07-03 00:07 | disposition short-term general hospital (02) ==
LOC: ED 20:20
PROVIDERS: Emergency Medicine
DX: T82.898A Other specified complication of vascular prosthetic devices, implants and grafts, initial encounter (principal); R06.02 Shortness of breath; F17.210 Nicotine dependence, cigarettes, uncomplicated; Z91.030 Bee allergy status; Z88.7 Allergy status to serum and vaccine; Z88.0 Allergy status to penicillin; Z88.5 Allergy status to narcotic agent; Z88.8 Allergy status to other drugs, medicaments and biological substances; Z79.2 Long term (current) use of antibiotics; Z79.899 Other long term (current) drug therapy; Z79.82 Long term (current) use of aspirin; Z98.51 Tubal ligation status; Z98.890 Other specified postprocedural states; Y84.8 Other medical procedures as the cause of abnormal reaction of the patient, or of later complication, without mention of misadventure at the time of the procedure; Y92.89 Other specified places as the place of occurrence of the external cause

== ENCOUNTER 2021-07-18 12:59 | Emergency (ER) | payer OTHER, MEDICAID ==
[~2021-07-18] VITALS: Ht 157.4 cm; Wt 58.1 kg
== END 2021-07-18 15:30 | disposition home or self-care (01) ==
LOC: ED 12:59
DX: S50.11XA Contusion of right forearm, initial encounter (principal); F17.210 Nicotine dependence, cigarettes, uncomplicated; Z91.030 Bee allergy status; Z88.0 Allergy status to penicillin; Z88.8 Allergy status to other drugs, medicaments and biological substances; Z79.899 Other long term (current) drug therapy; Z79.82 Long term (current) use of aspirin; W18.39XA Other fall on same level, initial encounter; Y93.89 Activity, other specified; Y92.89 Other specified places as the place of occurrence of the external cause; Y99.8 Other external cause status

== ENCOUNTER 2021-11-29 12:25 | Emergency (ER) | payer OTHER, MEDICAID ==
[~2021-11-29] VITALS: Ht 157.4 cm; Wt 54.4 kg
[2021-11-29 14:35] LABS: BASO # 0.1 10*3/uL (0.0-0.1); BASO % 0.7 % (0.0-1.0); EOS # 0.2 10*3/uL (0.0-0.4); EOS % 2.2 % (1.0-4.0); HEMATOCRIT 43.5 % (37.0-47.0); LYMPH # 2.1 10*3/uL (1.3-4.4); LYMPH % 22.6 % (27.0-41.0); MEAN CELL VOLUME 102.6 fl (81.0-99.0); MEAN CORPUSCULAR HGB CONC 33.1 g/dl (33.0-37.0); MEAN PLATELET VOLUME 10.3 fl (9.6-12.3); MONO # 0.6 10*3/uL (0.1-1.0); MONO % 6.1 % (3.0-9.0); NEUT # 6.2 10*3/uL (2.3-7.9); NEUT % 68.1 % (47.0-73.0); PLATELET COUNT AUTOMATED 368 10*3/uL (130-400); RED BLOOD COUNT 4.24 10*6/uL (4.10-5.10); WHITE BLOOD COUNT 9.1 10*3/uL (4.8-10.8)
[2021-11-29 14:54] LABS: ALKALINE PHOSPHATASE 88 U/L (45-117); BUN 11 mg/dl (7-24); CHLORIDE 104 mmol/L (98-107); CREATININE 0.76 mg/dL (0.55-1.02); POTASSIUM 4.3 mmol/L (3.5-5.1); SGOT/AST 19 IU/L (3-35); SGPT/ALT 32 U/L (12-78); SODIUM 137 mmol/L (136-145); TOTAL PROTEIN 7.5 gm/dL (6.4-8.2)
== END 2021-11-29 15:28 | disposition home or self-care (01) ==
LOC: ED 12:25
PROVIDERS: Emergency Medicine
DX: G89.29 Other chronic pain (principal); M54.2 Cervicalgia; R11.0 Nausea; R51.9 Headache, unspecified; J44.9 Chronic obstructive pulmonary disease, unspecified; I25.10 Atherosclerotic heart disease of native coronary artery without angina pectoris; G43.909 Migraine, unspecified, not intractable, without status migrainosus; F17.210 Nicotine dependence, cigarettes, uncomplicated; Z91.030 Bee allergy status; Z88.7 Allergy status to serum and vaccine; Z88.0 Allergy status to penicillin; Z88.8 Allergy status to other drugs, medicaments and biological substances; Z88.1 Allergy status to other antibiotic agents; Z79.899 Other long term (current) drug therapy; Z79.82 Long term (current) use of aspirin; Z98.51 Tubal ligation status; Z98.890 Other specified postprocedural states

== ENCOUNTER → 2021-11-29 | Outpatient (CLI) | payer OTHER, MEDICAID | END | disposition home or self-care (01) | LOC: RAD 11:22 | PROVIDERS: ATTEND Internal Medicine | DX: M51.36 Other intervertebral disc degeneration, lumbar region (principal); M50.30 Other cervical disc degeneration, unspecified cervical region; M48.02 Spinal stenosis, cervical region; M48.061 Spinal stenosis, lumbar region without neurogenic claudication; M25.78 Osteophyte, vertebrae; M89.38 Hypertrophy of bone, other site ==

== ENCOUNTER 2022-05-20 10:21 | Emergency (ER) | payer OTHER, MEDICAID ==
[~2022-05-20] VITALS: Ht 157.4 cm; Wt 53.5 kg
[2022-05-20 10:53] LABS: BASO # 0.1 10*3/uL (0.0-0.1); BASO % 0.7 % (0.0-1.0); EOS # 0.1 10*3/uL (0.0-0.4); EOS % 0.9 % (1.0-4.0); HEMATOCRIT 39.4 % (37.0-47.0); LYMPH % 21.6 % (27.0-41.0); MEAN CELL VOLUME 102.6 fl (81.0-99.0); MEAN CORPUSCULAR HGB 34.4 pg (27.0-31.0); MEAN CORPUSCULAR HGB CONC 33.5 g/dl (33.0-37.0); MEAN PLATELET VOLUME 9.8 fl (9.6-12.3); MONO # 0.5 10*3/uL (0.1-1.0); MONO % 5.9 % (3.0-9.0); NEUT # 6.5 10*3/uL (2.3-7.9); NEUT % 70.6 % (47.0-73.0); PLATELET COUNT AUTOMATED 351 10*3/uL (130-400); RED BLOOD COUNT 3.84 10*6/uL (4.10-5.10); RED CELL DISTRI WIDTH 12.9 % (0-14.5); WHITE BLOOD COUNT 9.2 10*3/uL (4.8-10.8)
[2022-05-20 11:05] LABS: ACT PARTIAL THROMBO TIME 24.8 SECONDS (20.0-32.1); INTERNATIONAL NORM RATIO 0.9 (2.0-3.5)
[2022-05-20 11:12] LABS: ALKALINE PHOSPHATASE 85 U/L (45-117); BUN 19 mg/dl (7-24); CHLORIDE 104 mmol/L (98-107); CREATININE 0.86 mg/dL (0.55-1.02); POTASSIUM 4.6 mmol/L (3.5-5.1); SGOT/AST 15 IU/L (3-35); SGPT/ALT 19 U/L (12-78); SODIUM 138 mmol/L (136-145); TOTAL PROTEIN 7.2 gm/dL (6.4-8.2)
== END 2022-05-20 13:19 | disposition left against medical advice (07) ==
LOC: ED 10:21
PROVIDERS: Student in an Organized Health Care Education/Training Program
DX: I73.89 Other specified peripheral vascular diseases (principal); F17.210 Nicotine dependence, cigarettes, uncomplicated; Z98.890 Other specified postprocedural states; Z98.51 Tubal ligation status; Z79.82 Long term (current) use of aspirin; Z79.899 Other long term (current) drug therapy; Z91.030 Bee allergy status; Z88.7 Allergy status to serum and vaccine; Z88.0 Allergy status to penicillin

== ENCOUNTER 2022-07-23 13:01 | Emergency (ER) | payer OTHER, MEDICAID ==
[~2022-07-23] VITALS: Ht 157.4 cm; Wt 53.5 kg
== END 2022-07-23 16:29 | disposition short-term general hospital (02) ==
LOC: ED 13:01
DX: S62.522B Displaced fracture of distal phalanx of left thumb, initial encounter for open fracture (principal); F41.9 Anxiety disorder, unspecified; J44.9 Chronic obstructive pulmonary disease, unspecified; I25.10 Atherosclerotic heart disease of native coronary artery without angina pectoris; I10 Essential (primary) hypertension; G43.909 Migraine, unspecified, not intractable, without status migrainosus; I73.9 Peripheral vascular disease, unspecified; F17.210 Nicotine dependence, cigarettes, uncomplicated; Z91.030 Bee allergy status; Z88.7 Allergy status to serum and vaccine; Z88.0 Allergy status to penicillin; Z88.5 Allergy status to narcotic agent; Z88.8 Allergy status to other drugs, medicaments and biological substances; Z79.899 Other long term (current) drug therapy; Z79.82 Long term (current) use of aspirin; Z98.890 Other specified postprocedural states; Z98.51 Tubal ligation status; W23.0XXA Caught, crushed, jammed, or pinched between moving objects, initial encounter; Y93.89 Activity, other specified; Y92.89 Other specified places as the place of occurrence of the external cause; Y99.8 Other external cause status

== ENCOUNTER → 2022-11-17 | Outpatient (CLI) | payer OTHER, MEDICAID ==
[2022-11-17 10:58] LABS: BASO # 0.1 10*3/uL (0.0-0.1); BASO % 0.7 % (0.0-1.0); EOS # 0.1 10*3/uL (0.0-0.4); EOS % 1.7 % (1.0-4.0); HEMATOCRIT 43.8 % (37.0-47.0); LYMPH # 2.1 10*3/uL (1.3-4.4); LYMPH % 26.5 % (27.0-41.0); MEAN CORPUSCULAR HGB 33.5 pg (27.0-31.0); MEAN CORPUSCULAR HGB CONC 32.2 g/dl (33.0-37.0); MEAN PLATELET VOLUME 10.2 fl (9.6-12.3); MONO # 0.6 10*3/uL (0.1-1.0); MONO % 7.5 % (3.0-9.0); NEUT # 5.1 10*3/uL (2.3-7.9); NEUT % 63.4 % (47.0-73.0); PLATELET COUNT AUTOMATED 358 10*3/uL (130-400); RED BLOOD COUNT 4.21 10*6/uL (4.10-5.10); RED CELL DISTRI WIDTH 13.1 % (0-14.5)
[2022-11-17 11:13] LABS: ALKALINE PHOSPHATASE 84 U/L (46-116); BUN 15 mg/dl (9-23); CHLORIDE 104 mmol/L (98-107); POTASSIUM 4.7 mmol/L (3.4-5.1); SGPT/ALT 12 U/L (10-49); TOTAL PROTEIN 7.1 gm/dL (6.0-8.0)
== END | disposition home or self-care (01) ==
LOC: LAB 10:42
PROVIDERS: ATTEND Nurse Practitioner Family
DX: K76.0 Fatty (change of) liver, not elsewhere classified (principal)

== ENCOUNTER 2023-01-29 10:13 | Emergency (ER) | payer OTHER, MEDICAID ==
[~2023-01-29] VITALS: Ht 157.4 cm; Wt 62.6 kg
[2023-01-29 11:25] LABS: BASO # 0.1 10*3/uL (0.0-0.1); BASO % 1.2 % (0.0-1.0); EOS # 0.2 10*3/uL (0.0-0.4); EOS % 2.8 % (1.0-4.0); HEMATOCRIT 39.8 % (37.0-47.0); LYMPH # 1.8 10*3/uL (1.3-4.4); LYMPH % 30.3 % (27.0-41.0); MEAN CELL VOLUME 103.9 fl (81.0-99.0); MEAN CORPUSCULAR HGB 33.4 pg (27.0-31.0); MEAN CORPUSCULAR HGB CONC 32.2 g/dl (33.0-37.0); MEAN PLATELET VOLUME 10.4 fl (9.6-12.3); MONO # 0.5 10*3/uL (0.1-1.0); MONO % 8.8 % (3.0-9.0); NEUT # 3.3 10*3/uL (2.3-7.9); NEUT % 56.7 % (47.0-73.0); PLATELET COUNT AUTOMATED 351 10*3/uL (130-400); RED BLOOD COUNT 3.83 10*6/uL (4.10-5.10); RED CELL DISTRI WIDTH 13.2 % (0-14.5); WHITE BLOOD COUNT 5.8 10*3/uL (4.8-10.8)
[2023-01-29 11:57] LABS: ALKALINE PHOSPHATASE 80 U/L (46-116); BUN 11 mg/dl (9-23); CHLORIDE 106 mmol/L (98-107); POTASSIUM 4.6 mmol/L (3.4-5.1); SGPT/ALT 12 U/L (10-49); TOTAL PROTEIN 6.6 gm/dL (6.0-8.0)
== END 2023-01-29 15:36 | disposition home or self-care (01) ==
LOC: ED 10:13
PROVIDERS: Internal Medicine
DX: F41.1 Generalized anxiety disorder (principal); Z91.030 Bee allergy status; Z88.7 Allergy status to serum and vaccine; Z88.0 Allergy status to penicillin; Z88.5 Allergy status to narcotic agent; Z88.8 Allergy status to other drugs, medicaments and biological substances; Z98.51 Tubal ligation status; Z98.42 Cataract extraction status, left eye; Z90.12 Acquired absence of left breast and nipple; Z98.890 Other specified postprocedural states; F17.210 Nicotine dependence, cigarettes, uncomplicated; G43.909 Migraine, unspecified, not intractable, without status migrainosus; F32.A Depression, unspecified; J45.909 Unspecified asthma, uncomplicated; Z86.718 Personal history of other venous thrombosis and embolism

== ENCOUNTER 2023-08-09 06:00 | Emergency (ER) | payer OTHER, MEDICAID ==
[~2023-08-09] VITALS: Ht 157.4 cm; Wt 62.6 kg
[2023-08-09] MEDS ORDERED: SEPTDS PO (06:43)
== END 2023-08-09 07:07 | disposition home or self-care (01) ==
LOC: ED 06:00
DX: S91.331A Puncture wound without foreign body, right foot, initial encounter (principal); F17.210 Nicotine dependence, cigarettes, uncomplicated; Z91.030 Bee allergy status; Z88.7 Allergy status to serum and vaccine; Z88.1 Allergy status to other antibiotic agents; Z88.8 Allergy status to other drugs, medicaments and biological substances; Z79.899 Other long term (current) drug therapy; Z79.82 Long term (current) use of aspirin; W22.8XXA Striking against or struck by other objects, initial encounter; Y93.89 Activity, other specified; Y92.89 Other specified places as the place of occurrence of the external cause; Y99.8 Other external cause status; Z98.51 Tubal ligation status

== ENCOUNTER 2023-11-01 09:56 | Emergency (ER) | payer OTHER, MEDICAID ==
[~2023-11-01] VITALS: Ht 157.4 cm; Wt 64.0 kg
[2023-11-01] MEDS ORDERED: HYDROCODONE-AC1 EAC1 PO (11:26)
== END 2023-11-01 11:32 | disposition home or self-care (01) ==
LOC: ED 09:56
DX: G56.01 Carpal tunnel syndrome, right upper limb (principal); G43.909 Migraine, unspecified, not intractable, without status migrainosus; F32.A Depression, unspecified; F41.9 Anxiety disorder, unspecified; J45.909 Unspecified asthma, uncomplicated; Z86.718 Personal history of other venous thrombosis and embolism; Z91.030 Bee allergy status; Z88.7 Allergy status to serum and vaccine; Z88.0 Allergy status to penicillin; Z88.5 Allergy status to narcotic agent; Z88.8 Allergy status to other drugs, medicaments and biological substances; Z98.890 Other specified postprocedural states; Z98.51 Tubal ligation status; Z90.12 Acquired absence of left breast and nipple; Z95.5 Presence of coronary angioplasty implant and graft; F17.210 Nicotine dependence, cigarettes, uncomplicated

== ENCOUNTER 2023-11-25 08:22 | Emergency (ER) | payer OTHER, MEDICAID ==
[~2023-11-25] VITALS: Ht 157.4 cm; Wt 63.5 kg
[2023-11-25 08:53] LABS: BASO # 0.1 10*3/uL (0.0-0.1); BASO % 0.5 % (0.0-1.0); EOS # 0.1 10*3/uL (0.0-0.4); EOS % 1.2 % (1.0-4.0); HEMATOCRIT 44.6 % (37.0-47.0); LYMPH # 2.5 10*3/uL (1.3-4.4); LYMPH % 23.3 % (27.0-41.0); MEAN CELL VOLUME 105.2 fl (81.0-99.0); MEAN CORPUSCULAR HGB CONC 31.4 g/dl (33.0-37.0); MEAN PLATELET VOLUME 10.4 fl (9.6-12.3); MONO # 0.6 10*3/uL (0.1-1.0); MONO % 5.7 % (3.0-9.0); NEUT # 7.4 10*3/uL (2.3-7.9); PLATELET COUNT AUTOMATED 352 10*3/uL (130-400); RED BLOOD COUNT 4.24 10*6/uL (4.10-5.10); RED CELL DISTRI WIDTH 12.6 % (0-14.5); WHITE BLOOD COUNT 10.7 10*3/uL (4.8-10.8)
[2023-11-25 09:06] LABS: ACT PARTIAL THROMBO TIME 26.4 SECONDS (20.0-32.1)
[2023-11-25 09:17] LABS: ALKALINE PHOSPHATASE 87 U/L (46-116); BUN 11 mg/dl (9-23); CHLORIDE 103 mmol/L (98-107); LIPASE 33 U/L (12-53); POTASSIUM 4.5 mmol/L (3.4-5.1); SGPT/ALT 15 U/L (5-49); TOTAL PROTEIN 7.7 gm/dL (6.0-8.0)
[2023-11-25] MEDS ORDERED: Ketorolac Tromethamine 30 MG/ML VIAL IV ONE (10:10)
[2023-11-25] MEDS ORDERED: Motrin,Rufen800 MG PO (10:19)
== END 2023-11-25 11:53 | disposition left against medical advice (07) ==
LOC: ED 08:22
PROVIDERS: Emergency Medicine
DX: S93.402A Sprain of unspecified ligament of left ankle, initial encounter (principal); R07.89 Other chest pain; G43.909 Migraine, unspecified, not intractable, without status migrainosus; F32.A Depression, unspecified; F41.9 Anxiety disorder, unspecified; J45.909 Unspecified asthma, uncomplicated; R10.2 Pelvic and perineal pain; I25.10 Atherosclerotic heart disease of native coronary artery without angina pectoris; Z86.718 Personal history of other venous thrombosis and embolism; Z91.030 Bee allergy status; Z88.0 Allergy status to penicillin; Z88.7 Allergy status to serum and vaccine; Z88.5 Allergy status to narcotic agent; Z88.8 Allergy status to other drugs, medicaments and biological substances; Z98.890 Other specified postprocedural states; Z98.51 Tubal ligation status; Z90.12 Acquired absence of left breast and nipple; Z95.5 Presence of coronary angioplasty implant and graft; F17.210 Nicotine dependence, cigarettes, uncomplicated; W19.XXXA Unspecified fall, initial encounter; Y93.89 Activity, other specified; Y92.89 Other specified places as the place of occurrence of the external cause; Y99.8 Other external cause status

== ENCOUNTER → 2024-01-14 | Outpatient (CLI) | payer OTHER, MEDICAID | END | disposition home or self-care (01) | LOC: RAD 11-25 01:43 → MRI 11-25 13:00 → RAD 11-25 13:00 | PROVIDERS: ATTEND Orthopaedic Surgery | DX: M65.4 Radial styloid tenosynovitis [de Quervain] (principal); M19.031 Primary osteoarthritis, right wrist ==

== ENCOUNTER 2024-05-10 07:22 | Emergency (ER) | payer OTHER, MEDICAID ==
[~2024-05-10] VITALS: Ht 157.4 cm; Wt 62.6 kg
[2024-05-10] MEDS ORDERED: Dexamethasone Sodium Phospha 20 MG/5 ML VIAL IM ONE (07:50)
[2024-05-10] MEDS ORDERED: Cyclobenzaprine Hydrochlorid 10 MG TAB PO ONE (07:50)
[2024-05-10] MEDS ORDERED: Ketorolac Tromethamine 30 MG/ML VIAL IM ONE (07:50)
[2024-05-10] MEDS ORDERED: CYCLOBENZAPRINE5 M3 PO (09:03)
[2024-05-10] MEDS ORDERED: MEDROL DOSEPAK4 MG PO (09:03)
== END 2024-05-10 09:12 | disposition home or self-care (01) ==
LOC: ED 07:22
DX: M62.830 Muscle spasm of back (principal); M54.2 Cervicalgia; M79.604 Pain in right leg; G43.909 Migraine, unspecified, not intractable, without status migrainosus; F32.A Depression, unspecified; F41.9 Anxiety disorder, unspecified; J45.909 Unspecified asthma, uncomplicated; F17.210 Nicotine dependence, cigarettes, uncomplicated; Z88.7 Allergy status to serum and vaccine; Z88.0 Allergy status to penicillin; Z88.5 Allergy status to narcotic agent; Z88.8 Allergy status to other drugs, medicaments and biological substances; Z98.890 Other specified postprocedural states; Z86.718 Personal history of other venous thrombosis and embolism; Z98.51 Tubal ligation status; Z95.5 Presence of coronary angioplasty implant and graft; Z90.12 Acquired absence of left breast and nipple

== ENCOUNTER 2024-08-15 04:52 | Emergency (ER) | payer OTHER, MEDICAID ==
[~2024-08-15] VITALS: Wt 62.6 kg
[~2024-08-15 04:52] MED LIST changes: +CYCLOBENZAPRINE5 M3 PO
[2024-08-15] MEDS ORDERED: TRAMADOL HCL50 MG PO (05:12)
[2024-08-15] MEDS ORDERED: SEPTDS PO (06:39)
== END 2024-08-15 07:07 | disposition home or self-care (01) ==
LOC: ED 04:52
DX: S61.431A Puncture wound without foreign body of right hand, initial encounter (principal); F17.210 Nicotine dependence, cigarettes, uncomplicated; Z91.030 Bee allergy status; Z88.7 Allergy status to serum and vaccine; Z88.0 Allergy status to penicillin; Z88.5 Allergy status to narcotic agent; Z88.8 Allergy status to other drugs, medicaments and biological substances; Z88.1 Allergy status to other antibiotic agents; Z79.82 Long term (current) use of aspirin; Z98.890 Other specified postprocedural states; W22.8XXA Striking against or struck by other objects, initial encounter; Y93.89 Activity, other specified; Y92.89 Other specified places as the place of occurrence of the external cause; Y99.8 Other external cause status

== ENCOUNTER 2025-04-17 05:09 | Emergency (ER) | payer MEDICARE, MEDICAID ==
[~2025-04-17] VITALS: Ht 154.9 cm; Wt 72.6 kg
[~2025-04-17 05:09] MED LIST changes: +TRAMADOL HCL50 MG PO
[2025-04-17] MEDS ORDERED: Dexamethasone Sodium Phospha 20 MG/5 ML VIAL IM ONE (05:40)
[2025-04-17] MEDS ORDERED: PREDNISONE20 M1 PO (05:42)
[2025-04-17] MEDS ORDERED: HYDROXYZINE HCL25 MG PO (05:42)
[2025-04-17] MEDS ORDERED: ERYTHROMYCIN 1 GM TUBE OPH ONE (05:45)
[2025-04-17] MEDS ORDERED: CORTISONE28 GM T (05:52)
[2025-04-17] MEDS ORDERED: HYDROCORTISONE 30 GM TUBE T SCH (10:00)
== END 2025-04-17 06:04 | disposition home or self-care (01) ==
LOC: ED 05:09
DX: L23.7 Allergic contact dermatitis due to plants, except food (principal); Z91.030 Bee allergy status; Z88.7 Allergy status to serum and vaccine; Z88.0 Allergy status to penicillin; Z88.5 Allergy status to narcotic agent; Z88.8 Allergy status to other drugs, medicaments and biological substances; Z88.1 Allergy status to other antibiotic agents; Z79.899 Other long term (current) drug therapy; Z79.82 Long term (current) use of aspirin; Z87.891 Personal history of nicotine dependence

== ENCOUNTER 2025-05-13 18:45 | Emergency (ER) | payer MEDICARE, MEDICAID ==
[~2025-05-13] VITALS: Ht 157.5 cm; Wt 61.2 kg
[~2025-05-13 18:45] MED LIST changes: +CORTISONE28 GM T; +HYDROXYZINE HCL25 MG PO
[2025-05-13] MEDS ORDERED: Ondansetron Hydrochloride 4 MG/2 ML VIAL IV ONE (19:25)
[2025-05-13] MEDS ORDERED: SODIUM CHLORIDE 0.9% 1,000 ML IV ONE (19:25)
[2025-05-13 19:49] LABS: BILIRUBIN Negative (Negative); BLOOD Negative (Negative); CLARITY Cloudy (Clear); COLOR Yellow (Yellow); KETONE Negative (Negative); LEUKO ESTERASE Negative (Negative); NITRITE Negative (Negative); PH 7.5 (4.5-8.0); SPECIFIC GRAVITY 1.020 (1.001-1.030); UROBILINOGEN 0.2 E.U./dl (0.0-1.0)
[2025-05-13 19:57] LABS: BASO # 0.1 10*3/uL (0.0-0.1); BASO % 0.6 % (0.0-1.0); EOS # 0.1 10*3/uL (0.0-0.4); EOS % 1.6 % (1.0-4.0); MEAN CELL VOLUME 100.2 fl (81.0-99.0); MEAN CORPUSCULAR HGB 32.0 pg (27.0-31.0); MEAN PLATELET VOLUME 9.5 fl (9.6-12.3); MONO # 0.5 10*3/uL (0.1-1.0); MONO % 5.9 % (3.0-9.0); NEUT # 6.4 10*3/uL (2.3-7.9); NEUT % 72.8 % (47.0-73.0); NUCLEATED RED BLOOD CELL 0.0 % (0.0-0.0); NUCLEATED RED BLOOD CELL 0.0 10*3/uL (0.0-0.0); PLATELET COUNT AUTOMATED 565 10*3/uL (130-400); RED CELL DISTRI WIDTH 13.0 % (0-14.5)
[2025-05-13 19:57] LABS: BACTERIA 3+
[2025-05-13 20:25] LABS: BUN 14.0 mg/dl (9-23); CPK 91.0 U/L (34-171); SGPT/ALT 15.0 U/L (5-49)
[2025-05-13] MEDS ORDERED: COMPAZINE10 M1 PO (22:40)
== END 2025-05-13 22:44 | disposition home or self-care (01) ==
LOC: ED 18:45
PROVIDERS: Emergency Medicine
DX: R55 Syncope and collapse (principal); N17.9 Acute kidney failure, unspecified; E86.0 Dehydration; R11.10 Vomiting, unspecified; D75.839 Thrombocytosis, unspecified; F17.210 Nicotine dependence, cigarettes, uncomplicated; Z91.030 Bee allergy status; Z88.7 Allergy status to serum and vaccine; Z88.0 Allergy status to penicillin; Z88.5 Allergy status to narcotic agent; Z88.8 Allergy status to other drugs, medicaments and biological substances; Z88.1 Allergy status to other antibiotic agents; Z79.899 Other long term (current) drug therapy; Z79.82 Long term (current) use of aspirin; Z98.890 Other specified postprocedural states

== ENCOUNTER 2025-09-13 15:50 | Emergency (ER) | payer MEDICARE, MEDICAID ==
[~2025-09-13] VITALS: Wt 59.0 kg
[~2025-09-13 15:50] MED LIST changes: +COMPAZINE10 M1 PO
[2025-09-13] MEDS ORDERED: Ondansetron Hydrochloride 4 MG/2 ML VIAL IV ONE (16:35)
[2025-09-13 16:37] LABS: BASO # 0.0 10*3/uL (0.0-0.1); BASO % 0.4 % (0.0-1.0); EOS # 0.1 10*3/uL (0.0-0.4); EOS % 0.5 % (1.0-4.0); MEAN CELL VOLUME 104.6 fl (81.0-99.0); MEAN CORPUSCULAR HGB 33.2 pg (27.0-31.0); MEAN PLATELET VOLUME 10.7 fl (9.6-12.3); MONO # 0.6 10*3/uL (0.1-1.0); MONO % 6.5 % (3.0-9.0); NEUT # 7.8 10*3/uL (2.3-7.9); NEUT % 79.2 % (47.0-73.0); NUCLEATED RED BLOOD CELL 0.0 % (0.0-0.0); NUCLEATED RED BLOOD CELL 0.0 10*3/uL (0.0-0.0); PLATELET COUNT AUTOMATED 243 10*3/uL (130-400); RED CELL DISTRI WIDTH 13.3 % (0-14.5)
[2025-09-13] MEDS ORDERED: IOHEXOL 300 MG/ML 100 ML VIAL IV ONE (16:45)
[2025-09-13] MEDS ORDERED: IOHEXOL 300 MG/ML 100 ML VIAL ONE (17:07)
[2025-09-13 17:40] LABS: ACT PARTIAL THROMBO TIME 23.4 SECONDS (20.0-32.1)
[2025-09-13 17:52] LABS: BUN 12 mg/dl (9-23); SGPT/ALT 16 U/L (5-49)
[2025-09-13 18:13] LABS: BILIRUBIN Negative (Negative); BLOOD Negative (Negative); CLARITY Clear (Clear); COLOR Yellow (Yellow); KETONE Negative (Negative); LEUKO ESTERASE Negative (Negative); NITRITE Negative (Negative); PH 6.0 (4.5-8.0); SPECIFIC GRAVITY >= 1.030 (1.001-1.030); UROBILINOGEN 0.2 E.U./dl (0.0-1.0)
[2025-09-13 18:32] LABS: BACTERIA TRACE
== END 2025-09-13 20:13 | disposition left against medical advice (07) ==
LOC: ED 15:50
PROVIDERS: Student in an Organized Health Care Education/Training Program
DX: S52.501A Unspecified fracture of the lower end of right radius, initial encounter for closed fracture (principal); S09.90XA Unspecified injury of head, initial encounter; S00.03XA Contusion of scalp, initial encounter; G43.909 Migraine, unspecified, not intractable, without status migrainosus; F32.A Depression, unspecified; F41.9 Anxiety disorder, unspecified; J45.909 Unspecified asthma, uncomplicated; F17.210 Nicotine dependence, cigarettes, uncomplicated; Z91.030 Bee allergy status; Z88.0 Allergy status to penicillin; Z88.5 Allergy status to narcotic agent; Z88.8 Allergy status to other drugs, medicaments and biological substances; W11.XXXA Fall on and from ladder, initial encounter; Y93.89 Activity, other specified; Y92.89 Other specified places as the place of occurrence of the external cause; Y99.8 Other external cause status